=== PATIENT | male | born 1980 | race Caucasian/White ===

== ENCOUNTER 2021-04-15 16:04 | Emergency (ER) | payer BC ==
[2021-04-15] MEDS ORDERED: IBUPROFEN 100 MG/5 ML UCUP ONE (17:43)
[2021-04-15] MEDS ORDERED: prednisoLONE 15 MG/5 ML OSYR ONE (17:43)
[2021-04-15] MEDS ORDERED: DIPHENHYDRAMINE 12.5MG/5ML LIQ ONE (17:44)
[2021-04-15] MEDS ORDERED: KETOROLAC 30 MG/ML INJ ONE (18:02)
[2021-04-15] MEDS ORDERED: CYCLOBENZAPRINE 10 MG TAB ONE (18:02)
--- NOTE | 2021-04-15 18:19 | RAD REPORT ---
EXAM DESCRIPTION: CT - C Spine Wo Con - 04/15/2021 5:57 pm CLINICAL HISTORY: Right arm radiculopathy COMPARISON: None. TECHNIQUE: Computed axial tomography of the cervical spine were obtained with sagittal and coronal r econstruction images generated and reviewed. All CT scans are performed using dose optimization technique as appropriate and may include automated exposure control or mA/KV adjustment according to patient size. FINDINGS: A cervical fracture is not seen. No dislocation No high-grade central/foraminal stenosis. A disc herniation is not seen but can be missed on CT. IMPRESSION: A cervical fracture is not seen. If the patient continues have symptoms to suggest spinal cord/spinal canal pathology then MRI would b e recommended.
--- NOTE | 2021-04-15 19:08 | ER ---
Nurse's Notes [facility] Name: Toy Hou Age: 40 yrs Sex: Male : 1980 Arrival Date: 04/15/2021 Time: 16:10 Bed 20 Private MD: Diagnosis: Strain of muscle and tendon of back wall of thorax Presentation: 04/15 16:19 Chief complaint: Patient states: i think i have a pinched nerve in my RIGHT shoulder. tw2 it has been about 11 or 12 days. i do work out. it felt more spontaneous when the pain came on. not after i was working out. it is killing me. it has my arm painful and radiates down to my the front of my chest into my pec. Coronavirus screen: At this time, the client does not indicate any symptoms associated with coronavirus-19. Ebola Screen: Patient denies travel to an Ebola-affected area in the 21 days before illness onset. Initial Sepsis Screen: Does the patient meet any 2 criteria? No. Patient's initial sepsis screen is negative. Does the patient have a suspected source of infection? No. Patient's initial sepsis screen is negative. Risk Assessment: Do you want to hurt yourself or someone else? Patient reports no desire to harm self or others. Onset of symptoms was April 15, 2021. 16:19 Method Of Arrival: Ambulatory tw2 16:19 Acuity: SOFIA 4 tw2 Triage Assessment: 16:24 General: Appears in no apparent distress. Behavior is calm, cooperative, appropriate tw2 for age. Pain: Complains of pain in right shoulder. Historical: - Allergies: 16:22 No Known Allergies; tw2 - Home Meds: 16:22 None [Active]; tw2 - PMHx: 16:31 None; tw2 - PSHx: 16:22 Cholecystectomy; tw2 - Immunization history:: Client reports receiving the 2nd dose of the Covid vaccine. - Social history:: Smoking status: Patient reports the use of cigarette tobacco products, smokes one pack cigarettes per day. Patient uses alcohol, only on a social basis. street drugs, marijuana, every other day. Screenin:23 Abuse screen: Denies threats or abuse. Nutritional screening: No deficits noted. sl2 Tuberculosis screening: No symptoms or risk factors identified. Never had TB. Possible symptoms: None Risk factors: None. Fall Risk None identified. No fall in past 12 months (0 pts). No secondary diagnosis (0 pts). No IV (0 pts). Ambulatory Aid- None/Bed Rest/Nurse Assist (0 pts). Gait- Normal/Bed Rest/Wheelchair (0 pts) Mental Status- Oriented to own ability (0 pts). Total Ruiz Fall Scale indicates No Risk (0-24 pts). Assessment: 17:50 General: Appears uncomfortable, well groomed, well developed, Behavior is calm, sl2 cooperative, appropriate for age, Reports right shoulder pain. 17:50 Pain: Complains of pain in right shoulder Pain currently is 8 out of 10 on a pain sl2 scale. Quality of pain is described as aching, sharp, Pain began gradually, Is continuous. Neuro: No deficits noted. Cardiovascular: No deficits noted. Reports. Respiratory: Reports Airway is patent Trachea midline Respiratory effort is even, unlabored, Respiratory pattern is regular, symmetrical, Breath sounds are clear bilaterally. GI: No deficits noted. No signs and/or symptoms were reported involving the gastrointestinal system. : No deficits noted. No signs and/or symptoms were reported regarding the genitourinary system. EENT: No deficits noted. No signs and/or symptoms were reported regarding the EENT system. Derm: No deficits noted. No signs and/or symptoms reported regarding the dermatologic system. Musculoskeletal: Reports pain in Right shoulder. Vital Signs: 16:19 BP 135 / 98; Pulse 100; Resp 17; Temp 98.4(TE); Pulse Ox 99% on R/A; Weight 117.93 kg; tw2 Height 6 ft. 2 in. (187.96 cm); Pain 3/10; 18:00 BP 132 / 88; Pulse 95; Resp 18; Temp 98.8; Pulse Ox 99% ; sl2 18:30 BP 136 / 82; Pulse 88; Resp 18; Temp 98.2; Pulse Ox 100% ; sl2 19:15 BP 123 / 86; Pulse 82; Resp 20; Temp 98.0(O); Pulse Ox 100% on R/A; cc4 16:19 Body Mass Index 33.38 (117.93 kg, 187.96 cm) tw2 ED Course: 16:10 Patient arrived in ED. ds1 16:22 Triage completed. tw2 16:24 Arm band placed on. tw2 17:02 Sheldon Emmanuel PA is PHCP. [facility] 17:02 Zac Arroyo MD is Attending Physician. [facility] 17:39 Zully Madrid, RN is Primary Nurse. sl2 17:57 CT C Spine In Process Unspecified. EDMS 18:23 Patient has correct armband on for positive identification. Bed in low position. Call sl2 light in reach. Adult w/ patient. 18:23 No provider procedures requiring assistance completed. Patient did not have IV access sl2 during this emergency room visit. 19:21 Primary Nurse role handed off by Zully Madrid, GAGE tt3 19:22 Concepción Reese, RN is Primary Nurse. cc4 Administered Medications: 18:13 Drug: Ketorolac 30 mg Route: IM; Site: right ventrogluteal; sl2 19:15 Follow up: Response: No adverse reaction; Pain is decreased cc4 18:13 Drug: Flexeril (cyclobenzaprine) 10 mg Route: PO; sl2 19:15 Follow up: Response: No adverse reaction; Pain is decreased cc4 Outcome: 19:07 Discharge ordered by MD. [facility] 19:15 Discharged to home ambulatory. cc4 19:15 Condition: improved 19:15 Discharge instructions given to patient, Instructed on discharge instructions, follow up and referral plans. medication usage, Demonstrated understanding of instructions, follow-up care, medications, Prescriptions given X 3. 19:23 Patient left the ED. cc4 Signatures: Dispatcher [employer] EDNM Sheldon Emmanuel PA PA Antonia Regan ds1 Yi Caballero RN RN tw2 Brennan Bowie tt3 Concepción Reese, GAGE RN cc4 Zully Madrid, GAGE RN sl2 Corrections: (The following items were deleted from the chart) 18:59 18:30 BP 168 / 97; Pulse 93bpm; Resp 18bpm; Pulse Ox 100%; Temp 98.8F; sl2 sl2
--- NOTE | 2021-04-15 19:09 | EDPHYS ---
Physician Documentation [facility] Name: Toy Hou Age: 40 yrs Sex: Male : 1980 Arrival Date: 04/15/2021 Time: 16:10 Bed 20 Private MD: ED Physician Zac Arroyo HPI: 04/15 17:35 This 40 yrs old Male presents to ER via Ambulatory with complaints of jmm Shoulder Pain. 17:35 The patient or guardian complains of pain. Onset: The symptoms/episode began/occurred jmm gradually, 1 week(s) ago. Modifying factors: the symptoms are alleviated by nothing. The symptoms are aggravated by nothing. Associated signs and symptoms: Pertinent negatives:. 40-year-old male with no chronic medical conditions presents emerged part with complaints of right upper back pain which radiates into the right arm. Patient states symptoms been ongoing for approximately 1 week. Patient states he awoke to the pain. Pain has been constant. Denies shortness of breath, vomiting, neck stiffness, headache.. Historical: - Allergies: 16:22 No Known Allergies; tw2 - Home Meds: 16:22 None [Active]; tw2 - PMHx: 16:31 None; tw2 - PSHx: 16:22 Cholecystectomy; tw2 - Immunization history:: Client reports receiving the 2nd dose of the Covid vaccine. - Social history:: Smoking status: Patient reports the use of cigarette tobacco products, smokes one pack cigarettes per day. Patient uses alcohol, only on a social basis. street drugs, marijuana, every other day. ROS: 17:35 Constitutional: Negative for fever, chills, and weight loss, Cardiovascular: Negative jmm for chest pain, palpitations, and edema, Respiratory: Negative for shortness of breath, cough, wheezing, and pleuritic chest pain. 17:35 Neck: Positive for pain with movement. 17:35 MS/extremity: Positive for pain. 17:35 All other systems are negative. Exam: 17:35 Constitutional: This is a well developed, well nourished patient who is awake, alert, jmm and in no acute distress. Head/Face: atraumatic. Eyes: EOMI, no conjunctival erythema appreciated ENT: Moist Mucus Membranes 17:35 Chest/axilla: Normal chest wall appearance and motion. Cardiovascular: Regular rate and rhythm. No edema appreciated Respiratory: Normal respirations, no respiratory distress appreciated Abdomen/GI: Non distended, soft 17:35 Neck: C-spine: vertebral tenderness, that is mild, diffusely. 17:35 Back: Right trapezius tenderness on palpation. 17:35 Musculoskeletal/extremity: Full range of motion appreciated to the right shoulder, full validation manager strength is appreciated, radial pulse intact, sensation intact, compartments are soft. Neurovascular intact. 17:35 Skin: Appearance: normal except for affected area, Color: normal in color. 17:35 Neuro: Orientation: is normal, Mentation: is normal, Memory: is normal. 17:35 Psych: Behavior/mood is pleasant, cooperative. Vital Signs: 16:19 BP 135 / 98; Pulse 100; Resp 17; Temp 98.4(TE); Pulse Ox 99% on R/A; Weight 117.93 kg; tw2 Height 6 ft. 2 in. (187.96 cm); Pain 3/10; 18:00 BP 132 / 88; Pulse 95; Resp 18; Temp 98.8; Pulse Ox 99% ; sl2 18:30 BP 136 / 82; Pulse 88; Resp 18; Temp 98.2; Pulse Ox 100% ; sl2 19:15 BP 123 / 86; Pulse 82; Resp 20; Temp 98.0(O); Pulse Ox 100% on R/A; cc4 16:19 Body Mass Index 33.38 (117.93 kg, 187.96 cm) tw2 MDM: 17:35 Patient medically screened. [facility] 19:06 Data reviewed: vital signs, nurses notes. Counseling: I had a detailed discussion with [place] the patient and/or guardian regarding: the historical points, exam findings, and any diagnostic results supporting the discharge/admit diagnosis, radiology results, the need for outpatient follow up, to return to the emergency department if symptoms worsen or persist or if there are any questions or concerns that arise at home. ED course: Patient is alert nontoxic in appearance in the ED. The right ear did reveal some crusting and mild erythema. Patient states this been ongoing for 6 months. I did discuss with the patient possibility of skin cancer and the need to follow-up with dermatology for further evaluation. CT of the neck was normal. I think most likely this is musculoskeletal process. Patient vies follow-up PCP and will be put on some muscle relaxers steroids to help alleviate symptoms in the meantime. Patient otherwise given strict return precautions. Patient understood and agrees plan of care.. 04/15 17:36 Order name: CT C Spine; Complete Time: 18:20 [facility] Administered Medications: 18:13 Drug: Ketorolac 30 mg Route: IM; Site: right ventrogluteal; sl2 19:15 Follow up: Response: No adverse reaction; Pain is decreased cc4 18:13 Drug: Flexeril (cyclobenzaprine) 10 mg Route: PO; sl2 19:15 Follow up: Response: No adverse reaction; Pain is decreased cc4 Disposition Summary: 04/15/21 19:07 Discharge Ordered Location: Home [facility] Condition: Stable [facility] Diagnosis - Strain of muscle and tendon of back wall of thorax [facility] Followup: [facility] - With: Private Physician - When: 2 - 3 days - Reason: Recheck today's complaints, Continuance of care, Re-evaluation by your physician Discharge Instructions: - Discharge Summary Sheet [facility] - Thoracic Strain [facility] Forms: - Medication Reconciliation Form [facility] - Thank You Letter [facility] - Antibiotic Education [facility] - Prescription Opioid Use [facility] - Work release form cc4 Prescriptions: - Ibuprofen 800 mg Oral Tablet - take 1 tablet by ORAL route every 12 hours As needed take with food; 20 tablet; [facility] Refills: 0, Product Selection Permitted - Medrol (Loyd) 4 mg Oral Tablets, Dose Pack - take 1 tablet by ORAL route as directed - follow package instructions; 1 [facility] packet; Refills: 0, Product Selection Permitted - orphenadrine citrate 100 mg Oral Tablet Sustained Release - take 1 tablet by ORAL route 2 times per day As needed; 20 tablet; Refills: 0, [facility] Product Selection Permitted Addendum: 04/17/2021 08:38 Co-signature as Attending Physician, Zac Arroyo MD I agree with the assessment and s p3 plan of care. Signatures: Dispatcher [employer] Sheldon Mcgowan PA PA jmm Wise, Tara, RN RN tw2 Zac Arroyo MD MD sp3 Zully Madrid RN RN sl2 Concepción Reese RN cc4
[2021-04-15 19:48] VITALS: BP 136/82; TEMP 98.2; O2SAT 100
== END 2021-04-15 19:23 | disposition home or self-care (01) ==
LOC: ER 16:04
DX: S29.012A Strain of muscle and tendon of back wall of thorax, initial encounter (principal); X58.XXXA Exposure to other specified factors, initial encounter
CPT/HCPCS: 72125; 96372; 99283; J7510; Q0163